=== PATIENT | male | born 1990 | race Caucasian/White ===

== ENCOUNTER 2018-03-28 01:26 | Emergency (ER) | payer OTHER ==
[~2018-03-28] VITALS: Ht 182.9 cm; Wt 89.8 kg
[2018-03-28 02:02] LABS: ABSOLUTE BASOPHIL COUNT 0 /CUMM (0.0-0.2); ABSOLUTE LYMPH COUNT 1.5 /CUMM (1.2-3.4); ABSOLUTE MONOCYTE COUNT 0.3 /CUMM (0.10-0.60)
[2018-03-28 02:09] LABS: ABSOLUTE EOSINOPHIL COUNT 0.2 /CUMM (0.0-0.7); ABSOLUTE GRANULOCYTE CT 4.8 /CUMM (1.4-6.5); BASOPHIL % 0.5 % (0.0-2.0); EOSINOPHIL % 2.3 % (0-5); GRANULOCYTE % 70.5 % (42.2-75.2); MEAN PLATELET VOLUME 9.4 FL (7.4-10.4); RBC DISTRIBUTION WIDTH 12.6 % (11.5-14.5); WHITE BLOOD CELL COUNT 6.8 /CUMM (4.8-10.8)
--- NOTE | 2018-03-28 02:19 | ED GI/GU/ABDOMINAL COMPLAINT ---
History of Present Illness General Chief Complaint: General Adult Stated Complaint: " NOT HIMSELF, OUTSIDE IN THE SUN DRINKING,+N+V" Source: patient, old records, friend Exam Limitations: no limitations Vital Signs & Intake/Output Vital Signs & Intake/Output Vital Signs Date Time Temp Pulse Resp B/P B/P Pulse O2 O2 Flow FiO2 Mean Ox Delivery Rate 03/28 0141 98.7 87 18 132/86 96 Room Air Allergies Coded Allergies: NO KNOWN ALLERGIES (08/25/13) Reconcile Medications No Known Home Medications Triage Note: PT TO ED C/O +N/V/POUNDING HEADACHE S/P "DRINKING IN THE SUN YESTERDAY ALL AFTERNOON. +N/V STARTED 2 HRS AGO. STATES FELT POUNDING IN CHEST "AND THE ARMS AND LEGS WENT NUMB" PT VERY ANXIOUS. HR 87 AND REGULAR. PT DENIES FEELING PUNDING IN CHEST AT THIS TIME. Triage Nurses Notes Reviewed? yes Onset: Just prior to arrival Duration: hour(s):, better, continues in ED Timing: recent history Quality/Severity: cramping, moderate, vomiting Location: generalized abdomen Radiation: no radiation Activities at Onset: rest Prior Abdominal Problems: none Past Sexual History: Unobtainable at this time Modifying Factors: Worsens With: eating. Associated Symptoms: abdominal pain, loss of appetite, nausea/vomiting, weakness HPI: Patient reports being outside for 8 hours playing yard games drinking alcohol with little food. Prior to admission reports nausea vomiting generalized abdominal discomfort lightheaded. He denies fever chills diarrhea chest pain cough shortness of breath headache dysuria rash bleeding. Past History Travel History Traveled to [place] past 21 day No Medical History Any Pertinent Medical History? none Neurological: NONE EENT: NONE Cardiovascular: NONE Respiratory: NONE Gastrointestinal: NONE Hepatic: NONE Renal: NONE Musculoskeletal: NONE Psychiatric: NONE Endocrine: NONE Blood Disorders: NONE Cancer(s): NONE BRAND COORDINATOR/Reproductive: NONE Influenza Vaccine: 10/07/13 Tetanus Vaccine: 08/25/13 Surgical History Surgical History: non-contributory Psychosocial History What is your primary language [place] Tobacco Use: Never used ETOH Use: occasional use Illicit Drug Use: denies illicit drug use Family History Hx Contributory? No Review of Systems Review of Systems Constitutional: Reports: see HPI, malaise. EENTM: Reports: no symptoms. Respiratory: Reports: no symptoms. Cardiovascular: Reports: no symptoms. GI: Reports: see HPI, abdominal pain, nausea, vomiting. Genitourinary: Reports: no symptoms. Musculoskeletal: Reports: no symptoms. Skin: Reports: no symptoms. Neurological/Psychological: Reports: no symptoms. Hematologic/Endocrine: Reports: no symptoms. Immunologic/Allergic: Reports: no symptoms. All Other Systems: Reviewed and Negative Physical Exam Physical Exam General Appearance: well developed/nourished, alert, awake, anxious, mild distress Head: atraumatic, normal appearance Eyes: Bilateral: normal appearance, PERRL, EOMI, normal inspection. Ears, Nose, Throat, Mouth: hearing grossly normal, dry mucous membranes Neck: normal inspection, supple, full range of motion, normal alignment Respiratory: normal breath sounds, chest non-tender, no respiratory distress, quiet respiration, lungs clear Cardiovascular: regular rate/rhythm, normal peripheral pulses, norml femoral pulses equa Peripheral Pulses: 4+ carotid (R), 4+ carotid (L) Gastrointestinal: normal bowel sounds, soft, non-tender, no organomegaly Male Genitals: normal genitalia Back: normal inspection, normal range of motion, no vertebral tenderness Extremities: normal range of motion, no ligament instability Neurologic/Psych: no motor/sensory deficits, awake, alert, oriented x 3, normal gait, normal mood/affect, 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 No Sepsis Present: No Sepsis Focused Exam Completed? No Progress Differential Diagnosis: gastritis, pancreatitis, PUD/GERD Plan of Care: Orders Procedure Date/time Status MAGNESIUM 03/28 015 Complete LIPASE 03/28 152 Complete ETHANOL 03/28 015 Complete COMPREHENSIVE METABOLIC PANEL 03/28 152 Complete CBC WITHOUT DIFFERENTIAL 03/28 152 Complete Current Medications Sig/Emeka Start time Last Medication Dose Stop Time Status Admin Sodium Chloride 1,000 ML BOLUS ONE 03/28 020 AC 03/28 (Normal Saline 0.9%) 03/28 0259 0203 Laboratory Tests 03/28/18 0156: Anion Gap 13, Estimated GFR > 60, BUN/Creatinine Ratio 16.3, Glucose 87, Calcium 9.5, Magnesium 1.9, Total Bilirubin 0.6, AST 28, ALT 31, Alkaline Phosphatase 118, Total Protein 8.3 H, Albumin 5.1 H, Globulin 3.2, Albumin/Globulin Ratio 1.6, Lipase 429 H, CBC w Diff NO MAN DIFF REQ, RBC 5.23, MCV 88.3, MCH 30.7, MCHC 34.8, RDW 12.6, MPV 9.4, Gran % 70.5, Lymphocytes % 22.2, Monocytes % 4.5, Eosinophils % 2.3, Basophils % 0.5, Absolute Granulocytes 4.8, Absolute Lymphocytes 1.5, Absolute Monocytes 0.3, Absolute Eosinophils 0.2, Absolute Basophils 0, Serum Alcohol < 10.0 Initial ED EKG: none Departure Departure Time of Disposition: 247 Disposition: HOME OR SELF CARE Condition: Stable Clinical Impression Primary Impression: Nausea & vomiting Secondary Impressions: Dehydration syndrome, Elevated lipase Referrals: Patient Has No Primary Care Dr (PCP/Family) Additional Instructions: Clear liquids in small amounts for 12-24 hours until better Departure Forms: Customer Survey General Discharge Information Prescriptions: Current Visit Scripts Ondansetron (Zofran Odt) 1 TAB SL TID PRN nausea #10 TAB
[2018-03-28 02:39] LABS: HEMATOCRIT 46.2 % (42-52); MEAN CORPUSCULAR HGB 30.7 PG (27.0-31.0); MEAN CORPUSCULAR HGB CONC 34.8 G/DL (33.0-37.0); MEAN CORPUSCULAR VOLUME 88.3 FL (80.0-94.0); PLATELET COUNT 203 /CUMM (130-400); RED BLOOD CELL CT 5.23 /CUMM (4.70-6.10)
[2018-03-28] MEDS ORDERED: ZOFRAN ODT4 M1 SL (02:49)
[2018-03-28 02:58] VITALS: BP 109/63
== END 2018-03-28 03:10 ==
LOC: ERH 01:26
PROVIDERS: Emergency Medicine
DX: R11.2 Nausea with vomiting, unspecified (principal); E86.0 Dehydration; R74.8 Abnormal levels of other serum enzymes
CPT/HCPCS: 96361; 96374; 96375; G0480; J2405